=== PATIENT | female | born 1965 | race Caucasian/White ===

== ENCOUNTER → 2016-09-18 | Outpatient (CLI) | payer BC, OTHER ==
[~2016-09-18] MED LIST: ADVIL200 MG PO; CLONIDINE HCL0.1 MG PO; DOCUSATE SODIU100 MG PO; ENDOCET 5-3251 EACH PO; LEVAQUIN750 MG PO; MUCINEX600 MG PO
== END | disposition home or self-care (01) ==
LOC: CDC 14:27
DX: I45.10 Unspecified right bundle-branch block (principal); R94.31 Abnormal electrocardiogram [ECG] [EKG]; I30.9 Acute pericarditis, unspecified
CPT/HCPCS: 93000

== ENCOUNTER 2016-09-27 05:07 | Day surgery (SDC) | payer BC, OTHER ==
[~2016-09-27] VITALS: Ht 175.3 cm; Wt 127.2 kg
[~2016-09-27 05:07] MED LIST changes: +BENICAR20 MG PO
[2016-09-27 05:58] VITALS: BP 163/92
[2016-09-27 09:26] VITALS: BP 166/84
[2016-09-27 10:15] VITALS: BP 163/88
== END 2016-09-27 10:15 | disposition home or self-care (01) ==
LOC: SDC
PROC: 0UDB8ZX Extraction of Endometrium, Via Natural or Artificial Opening Endoscopic, Diagnostic (ICD-10-PCS; principal; 2016-09-27)
DX: N84.0 Polyp of corpus uteri (principal); N92.0 Excessive and frequent menstruation with regular cycle; I10 Essential (primary) hypertension; K21.9 Gastro-esophageal reflux disease without esophagitis; F41.9 Anxiety disorder, unspecified; E66.9 Obesity, unspecified; Z68.41 Body mass index [BMI] 40.0-44.9, adult; I45.10 Unspecified right bundle-branch block; E55.9 Vitamin D deficiency, unspecified; Z81.1 Family history of alcohol abuse and dependence; Z87.891 Personal history of nicotine dependence; Z80.1 Family history of malignant neoplasm of trachea, bronchus and lung
CPT/HCPCS: 88305; J0330; J1100; J2250; J2405; J3010